=== PATIENT | male | born 1970 | race Two or more races ===

== ENCOUNTER 2021-10-07 05:43 | Emergency (ER) | payer OTHER ==
[~2021-10-07] VITALS: Ht 175.3 cm; Wt 67.1 kg
[2021-10-07] MEDS ORDERED: NORVASC2.5 M1 PO (05:53)
== END 2021-10-07 11:18 | disposition home or self-care (01) ==
LOC: ER 05:43
DX: R20.2 Paresthesia of skin (principal); Z20.822 Contact with and (suspected) exposure to COVID-19; I10 Essential (primary) hypertension